=== PATIENT | female | born 1945 | race Hispanic/Latino ===

== ENCOUNTER → 2019-03-17 | Outpatient (CLI) | payer MEDICARE ==
[~2019-03-17] MED LIST: ASPIR 8181 MG PO; CHOLESTEROL PILL PO; HYDROCHLOROTHIA25 MG PO; LEVOTHYROXINE50 MCG PO; LISINOPRIL-HCT1 EACH PO; LISINOPRIL10 MG PO; LISINOPRIL20 MG PO; SIMVASTATIN10 MG PO; SIMVASTATIN20 MG PO
--- NOTE | 2019-03-17 20:13 | Diagnostic Imaging Report ---
Lymphoscintigraphy Reason for Exam: Left breast cancer; scheduled for sentinel lymph node biopsy Radiopharmaceutical: Tc-99m filtered sulfur colloid 1.2 mCi Report: The radiotracer was given as two separate injections intradermally at the edge of the left areola. Three focal areas of tracer accumulation are seen in the left axilla. No accumulation of tracer is seen in the midline of the chest or in the neck. Impression: Injection for sentinel lymph node mapping. Three sentinel lymph nodes versus and two sentinel lymph nodes with one secondary nodes are identified in the left axilla. Two tracts from the subareolar plexus are seen to two separate nodes. One of the nodes does not have a tract. The nodes are visually all of equal intensity which suggests that they may all be primary lymph nodes. Signed by: Dr. Kyra Alcantara M.D. on 03/17/2019 8:10 PM
== END ==
LOC: NM 14:40
PROVIDERS: ATTEND Surgery
DX: C50.912 Malignant neoplasm of unspecified site of left female breast (principal)
CPT/HCPCS: 78195; A9541

== ENCOUNTER → 2019-03-18 | Day surgery (SDC) | payer MEDICARE ==
[2019-03-13 15:15] LABS: BASOPHILS % 0.3 % (0.0-1.0); EOSINOPHILS # (AUTO) 0.1 (0.0-0.4); EOSINOPHILS % 1.1 % (0.0-6.0); HEMATOCRIT 42.8 % (34.2-44.1); HEMOGLOBIN 14.4 g/dL (12.0-16.0); LYMPHOCYTES # (AUTO) 2.3 (1.0-3.2); LYMPHOCYTES % 22.3 % (18.0-39.1); MEAN CORPUSCULAR HEMOGLOBIN 29.5 pg (28-32); MEAN CORPUSCULAR HGB CONC 33.6 g/dL (31-35); MEAN CORPUSCULAR VOLUME 87.7 fL (81-99); MONOCYTES # (AUTO) 0.7 (0.2-0.8); MONOCYTES % 7.1 % (4.4-11.3); NEUTROPHILS # (AUTO) 7.1 (2.1-6.9); NEUTROPHILS % 68.8 % (38.7-80.0); PLATELET COUNT 287 x10e3/uL (140-360); RED BLOOD COUNT 4.88 x10e6/uL (3.6-5.1); RED CELL DISTRIBUTION WIDTH 12.9 % (11.7-14.4)
[2019-03-13 15:33] LABS: ANION GAP 11.5 mmol/L (8-16); BLOOD UREA NITROGEN 10 mg/dL (7-26); BUN/CREATININE RATIO 14 (6-25); CALCIUM 10.5 mg/dL (8.4-10.2); CARBON DIOXIDE 27 mmol/L (22-29); CHLORIDE 105 mmol/L (98-107); CREATININE, SERUM 0.73 mg/dL (0.57-1.11); EST GLOMERULAR FILTRATION RATE > 60 ML/MIN (60-); GLUCOSE 102 mg/dL (74-118); POTASSIUM 4.5 mmol/L (3.5-5.1); SODIUM 139 mmol/L (136-145)
--- NOTE | 2019-03-13 16:14 | Diagnostic Imaging Report ---
EXAMINATION: CHEST 2 VIEWS INDICATION: Pre-admit COMPARISON: None FINDINGS: TUBES and LINES: None. LUNGS: Lungs are well inflated. Mild patchy right basilar opacity, likely atelectasis. There is no evidence of pneumonia or pulmonary edema. PLEURA: No pleural effusion or pneumothorax. HEART AND MEDIASTINUM: The cardiomediastinal silhouette is unremarkable. There are atherosclerotic calcifications within the aorta. BONES AND SOFT TISSUES: No acute osseous abnormality. UPPER ABDOMEN: No free air under the diaphragm. IMPRESSION: No acute radiographic abnormality. Signed by: Dr. Ember Ogden MD on 03/13/2019 4:10 PM
[~2019-03-18] MED LIST changes: +ACETAMINOPHEN 1000 MG/100 ML 100 ML IV ONE; +BUPIVACAINE 0.25%/EPI 30ML SDV INJ ONE; +DEXAMETHASONE SOD PHOS INJ 4 MG/ML VIAL ONE; +EPHEDRINE SULFATE INJ 50 MG/10 ML SYR ONE; +FENTANYL CITRATE/PF 100MCG/2 ML INJ ONE; +KETOROLAC TROMETHAMINE 30 MG/ML VIAL ONE; +LIDOCAINE HCL 2% LOCAL INJ 5 ML SDV VIAL INJ ONE; +MIDAZOLAM HCL 2 MG/2 ML VIAL ONE; +ONDANSETRON HCL INJ 2MG/ML 2ML 2 MG/ML VIAL ONE; +PROPOFOL IV EMULSION 10 MG/ML 20 ML VIAL ONE; +SEVOFLURANE INHAL SOLN 250 ML PEN BTL ONE
--- OUTSIDE RECORDS SUMMARY | 2019-03-18 07:42 | XMS REPORT ---
Author Author [facility] Address Unknown Phone Unavailable Care Team Providers Care Forging Machine Hand Name Role Phone Jennifer REDDY Unavailable Unavailable Problems This patient has no known problems. Allergies, Adverse Reactions, Alerts This patient has no known allergies or adverse reactions. Medications This patient has no known medications. Results Test Description Test Time Test Comments Text Results Atomic Results Result Comments NM LYMPHOSCINTIGRAPHY INCL INJ 2019-03-17 20:04:00 [place] [address] Patient Name: EMILI HASSAN MR #: [id number] : 1945 Age/Sex: 73/F Req #: [id number] Adm Physician: Ordered by: KAILEE REDDY MD Report #: [id number] Location: [place] Room/Bed: Procedure: [id number] NM/NM LYMPHOSCINTIGRAPHY INCL INJ Exam Date: Exam Time: REPORT STATUS: Signed Lymphoscintigraphy Reason for Exam: Left breast cancer; scheduled for sentinel lymph node biopsy Radiopharmaceutical: Tc-99m filtered sulfur colloid 1.2 mCi Report: The radiotracer was given as two separate injections intradermally at the edge of the left areola. Three focal areas of tracer accumulation are seen in the left axilla. No accumulation of tracer is seen in the midline of the chest or in the neck. Impression: Injection for sentinel lymph node mapping. Three sentinel lymph nodes versus and two sentinel lymph nodes with one secondary nodes are identified in the left axilla. Two tracts from the subareolar plexus are seen to two separate nodes. One of the nodes does not have a tract. The nodes are visually all of equal intensity which suggests that they may all be primary lymph nodes. Signed by: Dr. Erasmo Alcantara M.D. on 03/17/2019 8:10 PM Dictated By: ERASMO ALCANTARA MD 09 Transcribed By: YOSVANY on 03/17/192009 COPY TO: KAILEE SMITH MD CHEST 2 VIEWS 2019-03-13 16:09:00 [place] [address] Patient Name: EMILI HASSAN MR #: [id number] : 1945 Age/Sex: 73/F Req #: [id number] Adm Physician: Ordered by: KAILEE REDDY MD Report #: [id number] Location: OR Room/Bed: Procedure: [id number] DX/CHEST 2 VIEWS Exam Date: 03/13/19 Exam Time: 1516 REPORT STATUS: Signed EXAMINATION: CHEST 2 VIEWS INDICATION: Pre-admit COMPARISON: None FINDINGS: TUBES and LINES: None. LUNGS: Lungs are well inflated. Mild patchy right basilar opacity, likely atelectasis. There is no evidence of pneumonia or pulmonary edema. PLEURA: No pleural effusion or pneumothorax. HEART AND MEDIASTINUM: The cardiomediastinal silhouette is unremarkable. There are atherosclerotic calcifications within the aorta. BONES AND SOFT TISSUES: No acute osseous abnormality. UPPER ABDOMEN: No free air under the diaphragm. IMPRESSION: No acute radiographic abnormality. Signed by: Dr. Aissatou Bermudez MD on 03/13/2019 4:10 PM Dictated By: AISSATOU BERMUDEZ MD 09 Transcribed By: YSOVANY on 03/13/191609 COPY TO: KAILEE REDDY MD BREAST ULTRASOUND CORE BIOPSY LEFT 2019-01-08 09:42:21 - BREAST ULTRASOUND CORE BIOPSY LEFTULTRASOUND GUIDED BIOPSY LEFT BREAST WITH MARKING DEVICE INSERTED: 01/06/2019CLINICAL: Ultrasound biopsy, left breast. Comparison is made to exams dated 12/17/2018 ultrasound, 12/17/2018 mammogram, 11/15/2018 mammogram, 09/14/2017 mammogram, and 08/11/2016 mammogram - [facility]-. An ultrasound guided biopsy using real-time ultrasound was performed for the 1.4 cm mass located in the left breast at 12 o'clock, 3 cm from the nipple. The skin was prepped in the usual manner. Local anesthetic was administered to the access site. A 14 gauge biopsy needle was placed adjacent to the abnormality under ultrasound guidance. Once the needle was documented to be in the correct location, multiple specimens were obtained using a BARD biopsy device. A clip was inserted into the biopsy cavity. The specimens were sent to the laboratory for pathological analysis. IMPRESSION: ULTRASOUND GUIDED BIOPSY MALIGNANT Ultrasound guided biopsy of the 1.4 cm mass in the left breast at 12 o'clock, 3 cm from the nipple, was successful with no apparent post procedure complications. PATHOLOGY INDICATES:Malignant invasive ductal carcinoma. Lorene Lau M.D. dm/:01/08/2019 09:42:21 Entry: todd - 01/08/2019 12:15:26Imaging Technologist: Danni Remy , [facility]- DIAG MAMM LEFT CAD DIGITAL 2019-01-06 12:39:39 - DIAG MAMM LEFT CAD DIGITALUNILATERAL LEFT DIGITAL DIAGNOSTIC MAMMOGRAM WITH CAD POST-PROCEDURE IMAGING FOR MARKER PLACEMENT: 01/06/2019CLINICAL: Post clip placement. Current mammographic images were evaluated by either a [employer] M-Vu or a [employer]cker CAD (computer aided detection system). Comparison is made to exams dated 12/17/2018 mammogram, 11/15/2018 mammogram, and [facility]14/2017 [facility] There are scattered fibroglandular tissues in the left breast. There is a marker clip in the appropriate position in the left breast at 12 o'clock. This marker clip placement is at the biopsy site. IMPRESSION: POST PROCEDURE IMAGING FOR MARKER PLACEMENTThere was a successful marker clip placement in the left breast. Lorene Lau M.D. dm/:01/06/2019 12:39:39 Assembly Detailer: Yarelis Ferrari , [facility]amm[facility] BI- RADS: Post-procedure mammogram for marker placement BREAST ULTRASOUND BILATERAL 2018-12-17 15:07:06 - BREAST ULTRASOUND BILATERALULTRASOUND OF BOTH BREASTS AND BOTH AXILLA: 12/17/2018CLINICAL: Abnormal mammogram. Comparison is made to exams dated 04/18/2015 ultrasound and 11/15/2018 mammogram - [facility]. Color flow ultrasound of both breasts and both axilla was performed. Soto scale images of the real-time examination were reviewed. An irregular shadowing mass is present at the 12 o'clock position of left breast, 3 cm from the nipple, measuring approximately 1.4 x 0.9 x 0.6 cm. This is oriented perpendicular to the skin, and demonstrates irregular margins. Findings correlate with the comparison mammographic findings, and are highly suspicious.At the 6 o'clock position of the left breast, 4 cm from the nipple, there is a benign appearing fibroadenoma versus complex cyst measuring approximately 0.5 cm.No abnormalities were seen sonographically in the right breast or either axilla. IMPRESSION: HIGHLY SUGGESTIVE OF MALIGNANCY - FOLLOW- UP RECOMMENDEDHighly suspicious mass at the 12 o'clock position of the left breast as above. This would be amenable to ultrasound-guided core biopsy.The results were reviewed with the patient. Tawanna Vargas M.D. yaq/:12/17/2018 15:07:06 Assembly Detailer: Sherrie Hoang RDMS , [facility]letter sent: BIRADS 4/5 Biopsy Ultrasound BI-RADS: 5 Highly suggestive of malignancy DIAG MAMM LEFT MICHAEL CAD DIGITAL 2018-12-17 15:02:40 - DIAG MAMM LEFT MICHAEL CAD DIGITALUNILATERAL LEFT DIGITAL DIAGNOSTIC MAMMOGRAM 3D/2D WITH CAD: 12/17/2018CLINICAL: Abnormal Mammogram. Digital breast tomosynthesis was performed in addition to routine CC and MLO views. Current mammographic images were evaluated by either a [employer] M-Vu or a [employer] CAD (computer aided detection system). Comparison is made to exams dated 11/15/2018 mammo gram, 09/14/2017 mammogram, 08/11/2016 mammogram, and 04/18/2015 [facility]. There are scattered fibroglandular tissues in the left breast. Additional views obtained today confirm the presence of a 1.5 cm focus of architectural distortion at the 12 o'clock position of the left breast, anterior depth, approximately 3 cm from the nipple. There are no associated microcalcifications, skin or nipple changes, or axillary adenopathy.Benign secretory calcifications are scattered throughout.IMPRESSION: INCOMPLETE ASSESSMENT: ADDITIONAL IMAGING EVALUATION RECOMMENDEDSuspicious architectural distortion, left breast, as above. Correlation with bilateral breast ultrasound follows, and is reported separately.Tawanna ordoñez/:12/17/2018 15:02:40 Entry: - 12/18/2018 07:08:37Imaging Technologist: Polina Reddy , [facility]OMEMammogram BI-RADS: 0 Indeterminate SCR MAMM BILATERAL MICHAEL CAD DIGITAL 2018-11-18 17:24:02 - SCR MAMM BILATERAL MICHAEL CAD DIGITALBILATERAL DIGITAL SCREENING MAMMOGRAM 3D/2D WITH CAD: 11/15/2018CLINICAL: Asymptomatic. Digital breast tomosynthesis was performed in addition to routine CC and MLO views. Current mammographic images were evaluated by either a [employer] M-Vu or a [employer] Image[employer]er CAD (computer aided detection system). Comparison is made to exams dated 09/14/2017 mammogram, 09/2016 mammogram, 04/18/2015 mammogram, and 04/08/2015 [facility]. Prior mammography dating back to 08/23/2009.There are scattered fibroglandular tissues in both breasts. There is architectural distortion in the subareolar left breast, 2 cm from the nipple, best visualized on the craniocaudal view (Left CC michael#[id number]) and not well seen on the mediolateral oblique view.No other significant masses, calcifications, or other findings are seen in either breast. IMPRESSION: INCOMPLETE ASSESSMENT: ADDITIONAL IMAGING EVALUATION RECOMMENDEDThe architectural distortion in the subareolar left breast (Left CC michael#[email or web address]) is indeterminate. Additional mammographic views with possible ultrasound are recommended. Paola Hemphill D.O. al/:11/18/2018 17:24:02 Assembly Detailer: Florecita GONZALEZ, [facility]-FWletter sent: Additional Imaging Mammogram BI-RADS: 0 Indeterminate
[2019-03-18 15:00] VITALS: BP 142/80
--- NOTE | 2019-03-18 18:56 | Operative Report ---
DATE OF PROCEDURE: 03/18/2019 SURGEON: Endy Reddy MD PREOPERATIVE DIAGNOSIS: Carcinoma of the left breast. POSTOPERATIVE DIAGNOSIS: Carcinoma of the left breast. OPERATION PERFORMED: Left total mastectomy with left axillary sentinel node mapping and biopsies. PRE PRESS MANAGER: MATT Gan. ANESTHESIA: General. COMPLICATIONS: None. ESTIMATED BLOOD LOSS: 25 mL. DESCRIPTION OF PROCEDURE: With the patient lying in bed in the supine position after having undergone a sentinel node mapping of the left axilla, the left breast was prepped with Betadine solution and draped in the usual manner. An elliptical incision was made to include the nipple areolar complex of the left breast. Incision was deepened through the subcutaneous tissue and flaps were developed in all directions, borders of the flaps medially to the sternum, superiorly to the clavicle, inferiorly to the rectus fascia and laterally to the latissimus dorsi. The breast tissue was then slowly and carefully taken off the pectoralis major muscle from medial to lateral and hemostasis was ascertained. The lateral border of the pectoralis major muscle was then from the breast tissue and the breast was removed and sent for pathological examination after being properly oriented. After this was done, the Neoprobe was utilized to localize the two sentinel nodes that had been mapped. The 3rd one was actually part of the 2nd axillary node in the midline. Both of the nodes were removed with some normal tissue all the way around and every thing was ligated with 3-0 Vicryl. Two separate specimens were sent. After this was done, examination of the axilla did not reveal any other hot spots with the Neoprobe. The whole area was then thoroughly irrigated. Perfect hemostasis was ascertained. Two 10 flat Jamey-Messina drain was then placed with separate stab wound incision, one was left in the axilla, the other was left in over the pectoralis major muscle and the wound was then closed using interrupted sutures of 2-0 and 3-0 silk. A dressing was applied. The sponge, lap, and needle count was correct. The patient tolerated the procedure well and returned to the recovery room in stable condition. MD SOFIA Ramirez/DIPAKL /[id number]
== END | disposition home or self-care (01) ==
LOC: OR 07:40
PROVIDERS: ATTEND Surgery
DX: C50.912 Malignant neoplasm of unspecified site of left female breast (principal); Z01.810 Encounter for preprocedural cardiovascular examination; Z01.812 Encounter for preprocedural laboratory examination; Z01.811 Encounter for preprocedural respiratory examination; Z88.0 Allergy status to penicillin; Z91.018 Allergy to other foods; I10 Essential (primary) hypertension
CPT/HCPCS: 19307; 36415; 38792; 71046; 80048; 85025; 88304; 88307; 93005; A4467; J0131; J1100; J1885; J2001; J2250; J2405; J2704

== ENCOUNTER → 2022-03-15 | Day surgery (SDC) | payer MEDICARE ==
[2022-03-13 15:38] LABS: BASOPHILS % 0.4 % (0.0-1.0); EOSINOPHILS # (AUTO) 0.1 (0.0-0.4); EOSINOPHILS % 0.6 % (0.0-6.0); HEMATOCRIT 38.8 % (34.2-44.1); HEMOGLOBIN 13.1 g/dL (12.0-16.0); LYMPHOCYTES # (AUTO) 1.1 (1.0-3.2); LYMPHOCYTES % 12.8 % (18.0-39.1); MEAN CORPUSCULAR HEMOGLOBIN 30.4 pg (28-32); MEAN CORPUSCULAR HGB CONC 33.8 g/dL (31-35); MONOCYTES # (AUTO) 0.5 (0.2-0.8); MONOCYTES % 6.1 % (4.4-11.3); NEUTROPHILS # (AUTO) 6.8 (2.1-6.9); NEUTROPHILS % 79.6 % (38.7-80.0); PLATELET COUNT 302 x10e3/uL (140-360); RED BLOOD COUNT 4.31 x10e6/uL (3.6-5.1); RED CELL DISTRIBUTION WIDTH 12.9 % (11.7-14.4)
[2022-03-13 15:55] LABS: ANION GAP 15.6 mmol/L (8-16); CALCIUM 11.5 mg/dL (8.4-10.2); CREATININE, SERUM 0.72 mg/dL (0.57-1.11)
[2022-03-13 15:57] LABS: POTASSIUM 5.6 mmol/L (3.5-5.1)
[2022-03-14 14:29] LABS: POTASSIUM 4.7 mmol/L (3.5-5.1)
[~2022-03-15] MED LIST changes: -ACETAMINOPHEN 1000 MG/100 ML 100 ML IV ONE; +ARIMIDEX1 MG PO; +ATORVASTATIN CA20 MG PO; -BUPIVACAINE 0.25%/EPI 30ML SDV INJ ONE; +BUPIVACAINE HC 0.75% PF 10ML VIAL INJ ONE; +CYCLOPENTOLATE HCL 1% OPTH SOLN 2ML BTL ONE; -DEXAMETHASONE SOD PHOS INJ 4 MG/ML VIAL ONE; -EPHEDRINE SULFATE INJ 50 MG/10 ML SYR ONE; +EPINEPHRINE HCL 1:1000 1ML 1 MG/ML AMP ONE; +GATIFLOXACIN(OPTH) 5 ML LIQD ONE; -KETOROLAC TROMETHAMINE 30 MG/ML VIAL ONE; +LIDOCAINE 2% /EPINEPHRINE 20 ML SDV INJ ONE; -LIDOCAINE HCL 2% LOCAL INJ 5 ML SDV VIAL INJ ONE; -ONDANSETRON HCL INJ 2MG/ML 2ML 2 MG/ML VIAL ONE; +PHENYLEPHRINE HCL 2 ML DROPS ONE; +PILOCARPINE HCL(OPTH) 15 ML LIQD ONE; +POVIDONE IODINE 0.05% 0.05 % ML PO ONE; +POVIDONE IODINE 5% (OPTH) 30 ML BTL ONE; -SEVOFLURANE INHAL SOLN 250 ML PEN BTL ONE; +TOBRAMYCIN/DEXAMETHASONE(OPTH) 3.5 GM TUBE ONE; +ZESTRIL10 MG PO
[2022-03-15 07:00] LABS: ANION GAP 10.7 mmol/L (8-16); CALCIUM 10.3 mg/dL (8.4-10.2); CREATININE, SERUM 0.62 mg/dL (0.57-1.11); POTASSIUM 3.7 mmol/L (3.5-5.1)
[2022-03-15 08:25] VITALS: BP 116/67
== END | disposition home or self-care (01) ==
LOC: OR 07:03
PROVIDERS: ATTEND Ophthalmology
DX: H25.12 Age-related nuclear cataract, left eye (principal); I10 Essential (primary) hypertension; E78.5 Hyperlipidemia, unspecified; Z88.0 Allergy status to penicillin; Z01.810 Encounter for preprocedural cardiovascular examination; Z01.812 Encounter for preprocedural laboratory examination; Z20.822 Contact with and (suspected) exposure to COVID-19; Z79.899 Other long term (current) drug therapy; Z85.3 Personal history of malignant neoplasm of breast
CPT/HCPCS: 36415 ×3; 66984; 80048 ×2; 84132; 84295; 85025; 93005; J0171; J2001; J2250; J2704; J3010; U0002; V2632

== ENCOUNTER → 2022-05-31 | Outpatient (CLI) | payer MEDICARE ==
[~2022-05-31] MED LIST changes: -BUPIVACAINE HC 0.75% PF 10ML VIAL INJ ONE; -CYCLOPENTOLATE HCL 1% OPTH SOLN 2ML BTL ONE; -EPINEPHRINE HCL 1:1000 1ML 1 MG/ML AMP ONE; -FENTANYL CITRATE/PF 100MCG/2 ML INJ ONE; -GATIFLOXACIN(OPTH) 5 ML LIQD ONE; -LIDOCAINE 2% /EPINEPHRINE 20 ML SDV INJ ONE; -MIDAZOLAM HCL 2 MG/2 ML VIAL ONE; -PHENYLEPHRINE HCL 2 ML DROPS ONE; -PILOCARPINE HCL(OPTH) 15 ML LIQD ONE; -POVIDONE IODINE 0.05% 0.05 % ML PO ONE; -POVIDONE IODINE 5% (OPTH) 30 ML BTL ONE; -PROPOFOL IV EMULSION 10 MG/ML 20 ML VIAL ONE; -TOBRAMYCIN/DEXAMETHASONE(OPTH) 3.5 GM TUBE ONE
== END ==
LOC: CARD 13:39
PROVIDERS: ATTEND Internal Medicine
DX: R09.89 Other specified symptoms and signs involving the circulatory and respiratory systems (principal)
CPT/HCPCS: 93880